=== PATIENT | female | born 1950 | race Caucasian/White ===

== ENCOUNTER 2020-05-15 21:08 | Emergency (ER) | payer MEDICARE, SELFPAY ==
[2020-05-15 21:10] VITALS: BP 155/66; PULSE 90; RESP 18; TEMP 36.7; O2SAT 98; BMI 32.6
--- NOTE | 2020-05-15 21:13 | RAD_ITS ---
STUDY: X-RAY - RIGHT ANKLE REASON FOR EXAM: Female, 69 years old. Twisted ankle while walking dog this evening. TECHNIQUE: 3 view(s) of the ankle. COMPARISON: Left tibia and fibula dated 07/23/2015 FINDINGS: Normal visualized distal fibula. There is a radiolucency projecting over the talar dome and distal tibia on the oblique image. There are degenerative changes of the mid and hindfoot. There is a bony density projecting anterior to the tibia which may reflect an underlying osteophyte. There is diffuse soft tissue swelling. RAD/Ankle min 3 Views IMPRESSION: Indeterminate radiolucency projecting over the talar dome and distal tibia, cannot exclude an underlying fracture. Rounded bony density projecting anterior to the ankle joint, may reflect an underlying osteophyte. Electronically Signed: Araceli Nelson MD at 21:35 EDT Tel , Service support ,
--- NOTE | 2020-05-15 23:15 | CT_ITS ---
HISTORY: CONCERN FOR FX ON XRAY, TWISTED ANKLE WHILE WALKING DOG EXAMINATION: CT Ankle W/O Contrast Injection TECHNIQUE: Helically acquired images were obtained of the right ankle. 2-D reformats were performed by the technologist. A radiation dose optimization technique was used for this scan. IV Contrast dosage and agent: None COMPARISON: Right ankle x-ray 2019 FINDINGS: Posterior and medial tibiotalar joint circumscribed loose body measuring 0.8 cm in maximal dimension and this is potentially related to prior posterior malleolar chip fracture of the distal tibia. No dislocation or acute fracture. Osteoarthritis with narrowing of the tibiotalar joint accompanied by anterior spurring of the distal tibia.. Small to moderate effusion of the tibiotalar joint, more pronounced anteriorly, and where there are 2 principal dystrophic calcifications as seen with synovial osteochondromatosis. The 2 [id number] calcifications measure approximately 1.5 cm and 0.9 cm in maximal dimension, respectively. The osteochondromas are compatible with secondary change related to osteoarthritis. Intact talar dome. The ankle mortise is not widened and no findings of tibiotalar instability. Small posterior calcaneal spur at the Achilles insertion. The plantar arch is maintained. The subtalar joint is maintained. Nonspecific and generalized superficial soft tissue swelling, more so laterally. CT/Extremity Lower without Contra IMPRESSION: 1. No dislocation, acute fracture, or findings of instability. 2. 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 Details above. 3. Nonspecific diffuse soft tissue swelling, more so laterally. Individualized dose optimization techniques were used for this CT. at 0103 Reported and signed by: Zach Sanotro MD Electronically Signed: Zach Santoro, at 1:02 EDT Tel , Service support ,
--- NOTE | 2020-05-15 23:17 | ED.VIS.GEN ---
History of Present Illness Chief Complaint: Lower Extremity Injury Informant: Patient Onset: Today Current Severity: Moderate Maximum Severity: Moderate Narrative: Patient presents with right ankle injury. She was walking her dog in her backyard when the dog pulled her 1 direction. She did not fall but did twist her ankle. She denies any other injuries. She has not taken anything for pain yet. - Past Medical History (1) Atrial flutter Status: Chronic (2) Hypertension Status: Chronic (3) High cholesterol Status: Chronic (4) COPD (chronic obstructive pulmonary disease) Status: Chronic (5) Diabetes Status: Chronic (6) DVT (deep venous thrombosis) Status: Chronic Past Medical History - Allergies and Home Meds Allergies/Adverse Reactions: Allergies codeine Allergy (Verified 05/15/20 21:12) Unknown exenatide [From Byetta] Allergy (Verified 05/15/20 21:12) Itching meloxicam [From Mobic] Allergy (Verified 05/15/20 21:12) Itching Primary Care Physician: Carey Elise MD [Primary Care Provider] - Prior records reviewed: Yes Lives: With Family Smoking Status: Current every day smoker Review of Systems General: Denies: Chills, Fever Eyes: Denies: Visual changes - bilaterally ENT: Denies: Bilateral ear pain Cardiovascular: Denies: Chest pain Respiratory: Denies: Dyspnea, Cough Gastrointestinal: Denies: Abdominal pain Musculoskeletal: Reports: Extremity Pain Neurological: Denies: Headache Hematologic: Denies: Easy bruising, Easy bleeding Allergy: Denies: Uticaria Physical Exam Vital Signs/Narrative: Vital Signs Temp Pulse Resp BP Pulse Ox 05/15/20 21:10 98.0 F 90 18 155/66 H 98 Inital Vital Signs reviewed: Yes General: Well nourished, Well developed Head: Normocephalic ENT: Moist mucous membranes Neck: Supple Cardiovascular: Regular rate, Regular rhythm Respiratory: No distress, CTA bilaterally Abdomen: Soft Extremities: - - Diffuse tenderness of the right ankle, bilateral malleoli and anteriorly. No tenderness over the midfoot or toes. Strong pulses. No tenderness of the proximal fibula or knee. Neurological: Alert, Oriented x3 Psychological: Normal affect Diagnostic/Tx/Re-eval Impressions Ankle X-Ray 05/15/20 21:13 IMPRESSION: Indeterminate radiolucency projecting over the talar dome and distal tibia, cannot exclude an underlying fracture. Rounded bony density projecting anterior to the ankle joint, may reflect an underlying osteophyte. Electronically Signed: Araceli Nelson MD at 21:35 EDT Tel , Service support , Lower Extremity CT 05/15/20 23:15 IMPRESSION: 1. No dislocation, acute fracture, or findings of instability. 2. 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 Details above. 3. Nonspecific diffuse soft tissue swelling, more so laterally. Individualized dose optimization techniques were used for this CT. at 0103 Reported and signed by: Zach Santoro MD Electronically Signed: Zach Santoro, at 1:02 EDT Tel , Service support , 05/15/20 21:13 Ankle min 3 Views [RAD] Stat 05/15/20 23:15 CT Lower [Extremity Lower without Contra] [CT] Stat - Medical Decision Making Patient was given Tylenol here for pain. Because the initial x-ray revealed possible talar fracture, CT was obtained. There is no evidence of fracture on CT. Patient is placed in a stirrup boot. She will continue Tylenol or ibuprofen at home for pain. She has a walker that she is able to use at home to place minimal pressure on her right foot. She is to follow with her family doctor in the next 5 to 7 days. ED Disposition - Plan for ED Patient: Disposition: Home or Assisted Living Diagnosis: Right ankle sprain Instructions: ED Sprain Ankle W X Ray Referrals: Carey Elise MD [Primary Care Provider] - 5-7 Days
[2020-05-16] MEDS: Acetaminophen 500 MG Tablet 1000 MG PO
[2020-05-16 01:45] VITALS: BP 143/65; PULSE 73; RESP 16; O2SAT 95
== END 2020-05-16 01:46 | disposition home or self-care (01) ==
PROVIDERS: Emergency Provider Emergency Medicine; PCP Internal Medicine
DX: S93.401A Sprain of unspecified ligament of right ankle, initial encounter (principal); F17.200 Nicotine dependence, unspecified, uncomplicated; X50.1XXA Overexertion from prolonged static or awkward postures, initial encounter; Y93.K1 Activity, walking an animal; Z86.718 Personal history of other venous thrombosis and embolism
CPT/HCPCS: 73610; 73700; 99283

== ENCOUNTER 2021-05-22 17:19 | Emergency (ER) | payer MEDICARE, SELFPAY ==
[2021-05-22 17:21] VITALS: BP 139/70; PULSE 92; RESP 16; TEMP 36.9; O2SAT 95; BMI 29.2
--- NOTE | 2021-05-22 19:18 | EX.ED.DYSGE1 ---
HPI History of Present Illness Chief Complaint: Dental Detail of Chief Complaint: White spots in mouth Informant: patient Onset/Context/Timing Onset: Today Narrative Narrative: Patient presents due to white spots in her mouth and on her tongue. She states yesterday she developed sore throat but woke up this morning with white spots in her mouth. She denies pain. She is a diabetic and does admit her blood sugars have been elevated. She also states that she does use an inhaler for her COPD. She does not rinse her mouth out after using her inhaler. [facility] Medical History (Updated 05/22/21 @ 19:[address] Alissa Torres MD) Atrial flutter COPD (chronic obstructive pulmonary disease) Diabetes DVT (deep venous thrombosis) High cholesterol Hypertension Home Medications albuterol sulfate [Proair Hfa (SP)Vent Pts] 1 puff INHALATION Q4H PRN PRN 11/29/16 [History Last Taken 11/29/16] amlodipine 10 mg PO DAILY 11/29/16 [History Last Taken 11/29/16] atorvastatin 40 mg PO QHS 11/29/16 [History Last Taken 11/28/16] ciclopirox [Loprox] 1 applic TP DAILY 11/29/16 [History Last Taken Unknown] dulaglutide [Trulicity] 0.75 mg SQ QWEEK 11/29/16 [History Last Taken 11/22/16] gabapentin [Neurontin] 300 mg PO BID 11/29/16 [History Last Taken 11/29/16] glimepiride 4 mg PO DAILY 11/29/16 [History Last Taken 11/29/16] loratadine [Alavert] 10 mg PO DAILY 11/29/16 [History Last Taken 11/29/16] metformin 500 mg PO DAILY 11/29/16 [History Last Taken 11/29/16] metoprolol succinate [Toprol Xl] 25 mg PO DAILY 11/29/16 [History Last Taken 11/29/16] pantoprazole 20 mg PO DAILY 11/29/16 [History Last Taken 11/29/16] rivaroxaban [Xarelto] 20 mg PO DAILY 11/29/16 [History Last Taken 11/29/16] nystatin 500,000 unit PO Q6H 14 Days #280 ml 05/22/21 [Rx Last Taken Unknown] Allergy/AdvReac Type Severity Reaction Status Date / Time codeine Allergy Unknown Verified 05/22/21 17:22 exenatide [From Byetta] Allergy Itching Verified 05/22/21 17:22 meloxicam [From Mobic] Allergy Itching Verified 05/22/21 17:22 Social History Smoking Status: Current every day smoker tobacco type: cigarettes ROS ROS ED Constitutional Constitutional ED: Denies chills or fever(s) Eyes Eyes: Denies change in vision ENT ENT ED: Reports sore throat and other Details: White spots in mouth Cardiovascular Cardiovascular: Denies chest pain Respiratory/Chest Respiratory/Chest: Denies cough or dyspnea Gastrointestinal Gastrointestinal: Denies abdominal pain, diarrhea, nausea or vomiting Genitourinary Genitourinary ED: Denies dysuria Musculoskeletal Musculoskeletal: Denies back pain Integumentary Denies rash Neurologic Neurologic: Denies headache(s) Allergic/Immunologic Allergic/Immunologic ED: Denies urticaria EXAM Physical Exam Const Vital Signs: 05/22/21 17:21 Temperature 98.4 F Temperature Source Temporal Pulse Rate 92 Respiratory Rate 16 Blood Pressure 139/70 H Blood Pressure Mean 93 Pulse Ox 95 Oxygen Delivery Method Room Air Positive well nourished and well developed General Appearance ED: well developed HEENT HEENT Narrative: Patient has evidence of thrush on her tongue and on the buccal mucosa bilaterally. Neck supple Chest Wall inspection of chest normal and palpation of chest normal Resp normal respiratory effort and clear to auscultation bilaterally Cardio regular rate and regular rhythm GI normal to inspection, nondistended, normoactive bowel sounds Neuro oriented x3 Sensorium / Orientation: alert Psych mental status grossly normal MDM MDM MDM Narrative Medical decision making narrative: Nystatin swish and swallow will be provided. First dose given here. Discharge Plan Triage Chief Complaint: Dental ED Provider: Alissa Torres Dx/Rx/DC Orders Clinical Impression: Oral thrush Instructions: Rekha Infection: Thrush Prescriptions: New nystatin 100,000 unit/mL suspension 500,000 unit PO Q6H 14 Days Qty: 280 RF: 0 No Action atorvastatin 40 MG tablet 40 mg PO QHS RF: 0 loratadine [Alavert] 10 MG tablet,disintegrating 10 mg PO DAILY RF: 0 pantoprazole 20 MG tablet 20 mg PO DAILY RF: 0 amlodipine 10 MG tablet 10 mg PO DAILY RF: 0 glimepiride 4 MG tablet 4 mg PO DAILY RF: 0 gabapentin [Neurontin] 300 MG capsule 300 mg PO BID RF: 0 metoprolol succinate [Toprol XL] 25 MG tablet extended release 24 hr 25 mg PO DAILY RF: 0 albuterol sulfate [ProAir HFA] 1 PUFF inhaler 1 puff inhalation Q4H PRN PRN (Reason: Asthma) RF: 0 ciclopirox [Loprox (as olamine)] 90 GM cream 1 applic TP DAILY RF: 0 metformin 500 MG tablet,ER nelda.retention 24 hr 500 mg PO DAILY RF: 0 rivaroxaban [Xarelto] 20 MG tablet 20 mg PO DAILY RF: 0 dulaglutide [Trulicity] 0.75 MG/0.5 ML pen injector 0.75 mg SQ QWEEK RF: 0 Primary Care Provider: Carey Elise Referrals: Carey Elise MD [Primary Care Provider] - 1-2 Weeks Disposition Disposition: Home, Self Care
[2021-05-22] MEDS: NYSTATIN 500,000 UNIT/5 ML UDC 500000 UNIT PO (19:46)
== END 2021-05-22 19:47 | disposition home or self-care (01) ==
PROVIDERS: Emergency Provider Emergency Medicine; PCP Internal Medicine
DX: B37.0 Candidal stomatitis (principal); J44.9 Chronic obstructive pulmonary disease, unspecified; E11.9 Type 2 diabetes mellitus without complications; E78.00 Pure hypercholesterolemia, unspecified; I10 Essential (primary) hypertension; F17.210 Nicotine dependence, cigarettes, uncomplicated; Z79.51 Long term (current) use of inhaled steroids; Z79.84 Long term (current) use of oral hypoglycemic drugs; Z79.899 Other long term (current) drug therapy
CPT/HCPCS: 99283

== ENCOUNTER 2025-06-21 12:23 | Emergency (ER) | payer MEDICARE, SELFPAY ==
[2025-06-21 12:24] VITALS: BP 99/75; PULSE 72; RESP 18; TEMP 36.7; O2SAT 97; BMI 29.3
[2025-06-21 12:27] VITALS: BP 99/75; PULSE 72; RESP 18; TEMP 36.7; O2SAT 97
--- NOTE | 2025-06-21 12:48 | CT_ITS ---
PROCEDURE: ABDOMEN/PELVIS WITHOUT CONT 06/21/2025 REASON FOR EXAM: LEFT FLANK PAIN TECHNIQUE: Procedure Code: [id number] Modality: CT Procedure: ABDOMEN/PELVIS WITHOUT CONT Noncontrast technique limits evaluation of the abdominal and pelvic viscera. Coronal and Sagittal reconstruction series were provided. One or more dose reduction techniques were used (e.g., Automated exposure control, adjustment of the mA and/or kV according to patient size, use of iterative reconstruction technique). RADIATION DOSE SUMMARY: CTDlvol: 16.4 mGy DLP: 790.77 mGycm COMPARISON: None FINDINGS: Lung bases: Increased linear markings in the posterior aspect of the right middle lobe suggestive of linear scarring and/or atelectasis. Coronary artery calcification. Liver: Normal size. No obvious mass. Gallbladder: Surgically absent. Spleen: Normal size. Pancreas: Diffuse fatty atrophy. Adrenals: Unremarkable Kidneys: No urolithiasis. No hydronephrosis. Bladder: Only partially filled. Reproductive Organs: Prior hysterectomy. Adnexal regions are unremarkable. Bowel: Colonic diverticulosis without diverticulitis. Appendix: The appendix is not identified. There is no inflammatory process identified in the right lower quadrant to suggest appendicitis. Lymph nodes: Unremarkable. Vasculature: Mild diffuse atherosclerotic calcifications are noted. Peritoneum / Retroperitoneum: Unremarkable Bones: Degenerative changes of the spine. CT/Abdomen/Pelvis without Cont IMPRESSION: Sigmoid diverticulosis. Status post cholecystectomy. No ureteral obstruction is seen. Reading Location: [id number]
--- NOTE | 2025-06-21 12:48 | ED.VIS.GI ---
HPI HPI - GI History of Present Illness Chief Complaint: Flank Pain Informant: patient Narrative Narrative: 74-year-old female states she started having pain in her left flank this morning. Has been there for several hours. No nausea or vomiting. No problems urinating. Normal bowel movements no blood in there or her urine. No fevers or chills that she knows of. No recent fall or injury. Hurts more to move around. Seen in urgent care and directed here to the ER. [facility] Medical History DVT (deep venous thrombosis) Diabetes COPD (chronic obstructive pulmonary disease) High cholesterol Hypertension Atrial flutter Home Medications ?Medication ?Instructions ?Recorded ?Last Taken ?Type albuterol sulfate 90 mcg/actuation 1 puff inhalation Q4H PRN PRN 11/29/16 11/29/16 History aerosol inhaler (ProAir HFA) Asthma amlodipine 10 mg tablet 10 mg PO DAILY 11/29/16 11/29/16 History atorvastatin 40 mg tablet 40 mg PO QHS 11/29/16 11/28/16 History ciclopirox 0.77 % topical cream 1 applic TP DAILY 11/29/16 Unknown History (Loprox (as olamine)) dulaglutide 0.75 mg/0.5 mL 0.75 mg SQ QWEEK 11/29/16 11/22/16 History subcutaneous pen injector (Trulicity) gabapentin 300 mg capsule 300 mg PO BID 11/29/16 11/29/16 History (Neurontin) glimepiride 4 mg tablet 4 mg PO DAILY 11/29/16 11/29/16 History loratadine 10 mg disintegrating 10 mg PO DAILY 11/29/16 11/29/16 History tablet (Alavert) metformin 500 mg 24 hr 500 mg PO DAILY 11/29/16 11/29/16 History tablet,extended release (gastric retention) metoprolol succinate 25 mg 25 mg PO DAILY 11/29/16 11/29/16 History tablet,extended release 24 hr (Toprol XL) pantoprazole 20 mg tablet,delayed 20 mg PO DAILY 11/29/16 11/29/16 History release rivaroxaban 20 mg tablet (Xarelto) 20 mg PO DAILY 11/29/16 11/29/16 History nystatin 100,000 unit/mL oral 500,000 unit (5 mL) PO Q6H 14 days 05/22/21 Unknown Rx suspension #280 mL Allergy/AdvReac Type Severity Reaction Status Date / Time codeine Allergy Unknown Verified 06/21/25 12:24 exenatide (From Byetta) Allergy Itching Verified 06/21/25 12:24 meloxicam (From Mobic) Allergy Itching Verified 06/21/25 12:24 Social History household members: children Smoking Status: Current every day smoker tobacco type: cigarettes ROS ROS ED Constitutional Constitutional ED: Denies chills or fever(s) Eyes Eyes: Denies change in vision or diplopia ENT ENT ED: Denies rhinorrhea or sore throat Cardiovascular Cardiovascular: Denies chest pain or palpitations Respiratory/Chest Respiratory/Chest: Denies cough or dyspnea Gastrointestinal Gastrointestinal: Reports abdominal pain; Denies diarrhea, nausea or vomiting Genitourinary Genitourinary ED: Reports flank pain; Denies dysuria or hematuria Musculoskeletal Musculoskeletal: Reports back pain; Denies neck pain Integumentary Denies abscess or rash Neurologic Neurologic: Denies headache(s), paresthesias or weakness Psychiatric Psychiatric: Denies anxiety or suicidal thoughts EXAM Physical Exam Const Vital Signs: 06/21/25 12:24 06/21/25 12:27 Temperature 98.1 F 98.1 F Temperature Source Oral Oral Pulse Rate 72 72 Respiratory Rate 18 18 Blood Pressure 99/75 99/75 Blood Pressure Mean 83 83 Pulse Ox 97 97 Oxygen Delivery Method Room Air Room Air Positive well nourished, well developed and obese General Appearance ED: well developed and NAD Nutritional Appearance: obese HEENT Reports moist mucous membranes normocephalic and atraumatic Eyes PERRL and EOMs intact bilaterally Neck full ROM and supple Resp normal respiratory effort and clear to auscultation bilaterally Cardio regular rate, regular rhythm and no murmurs GI non-distended GI Narrative: Mild tenderness in the lateral aspect of the left lower quadrant, but most of the tenderness seems to be bony at the ASIS and the pelvic brim that follows around toward the posterior aspect of her flank. She states this reproduces her pain and it hurts more for her to move suggesting a possible musculoskeletal etiology. No CVA tenderness. No rebound or guarding. No pulsatile mass. Obesity limiting this exam. Auscultation: normoactive bowel sounds Palpation: soft Back/Spine no CVA tenderness General Back: other FROM Extremity normal to inspection General Extremety ED: Negative for edema, pulses abnormal or tenderness General Extremity: Negative for edema or pulses abnormal Neuro oriented x3, CN's II-XII intact bilaterally and no sensory deficits noted Sensorium / Orientation: awake and alert Motor Exam: strength 5/5 throughout Skin no rashes or lesions noted and no wounds MDM MDM MDM Narrative Medical decision making narrative: Differential includes fracture or bursitis or other musculoskeletal etiologies of pain in this area but also ureterolithiasis, pyelonephritis, diverticulitis, early zoster although I do not see any indication of rash at this time. Offered analgesics while we did a workup including a CT but she declined. I reviewed the CT images and report which I agree with, it is showing diverticulosis but no evidence of diverticulitis or any other acute abnormality. Her blood work is unremarkable, she does not have a leukocytosis or leftward shift, and her urinalysis is unremarkable as well. Given all of this, this rules out intra-abdominal and GI causes of her pain as well as renal/ureteral/infectious causes, so I think this is probably musculoskeletal and she is thinking that now as well. Supportive care advised, she has a history of stage II chronic kidney disease so I would avoid NSAIDs which she plans on doing and just taking Tylenol as needed. She was offered but declined. Lab Data Attestation: I reviewed the patient's lab results. Labs: Laboratory Results - last 24 hr 06/21/25 06/21/25 13:11 13:15 WBC 10.2 RBC 5.35 Hgb 14.6 Hct 45.0 MCV 84.1 MCH 27.3 MCHC 32.4 RDW Std Deviation 47.7 H RDW Coeff of Eduarda 15.7 H Plt Count 355 MPV 10.6 Immature Gran % (Auto) 0.400 Neut % (Auto) 60.0 Lymph % (Auto) 26.2 Woods % (Auto) 7.8 Eos % (Auto) 4.7 Baso % (Auto) 0.9 Absolute Neuts (auto) 6.1 Absolute Lymphs (auto) 2.67 Nucleated RBC % 0 Sodium 135 Potassium 4.8 Chloride 102 Carbon Dioxide 22.5 Anion Gap 11 BUN 22 H Creatinine 1.06 Estim Creat Clear Calc 52.29 Est GFR (MDRD) Non-Af 54 L BUN/Creatinine Ratio 20.8 H Glucose 198 H Calcium 9.4 Urine Color Yellow Urine Clarity Clear Urine pH 6.0 Ur Specific [place] 1.010 Urine Protein 30 H Urine Glucose (UA) 1000 H Urine Ketones Negative Urine Occult Blood Negative Urine Nitrite Negative Urine Bilirubin Negative Urine Urobilinogen Normal Ur Leukocyte Esterase 25 H Urine RBC 0 SEEN Urine WBC 0-5 SEEN Ur Squamous Epith Cells 0 SEEN Urine Bacteria 0 SEEN Urine Mucus 0 SEEN Urine Yeast RARE Radiography Diagnostic Testing: Clinical Impression(s) from Imaging Studies Abdomen/Pelvis CT 06/21/25 12:48 IMPRESSION: Sigmoid diverticulosis. Status post cholecystectomy. No ureteral obstruction is seen. Reading Location: [id number] Discharge Plan Triage Chief Complaint: Flank Pain ED Provider: Maged Silverman Dx/Rx/DC Orders Clinical Impression: Strain of flank Instructions: ED Muscle Strain, Abdomen Prescriptions: No Action atorvastatin 40 MG tablet 40 mg PO QHS loratadine [Alavert] 10 MG tablet,disintegrating 10 mg PO DAILY pantoprazole 20 MG tablet 20 mg PO DAILY amlodipine 10 MG tablet 10 mg PO DAILY glimepiride 4 MG tablet 4 mg PO DAILY gabapentin [Neurontin] 300 MG capsule 300 mg PO BID metoprolol succinate [Toprol XL] 25 MG tablet extended release 24 hr 25 mg PO DAILY albuterol sulfate [ProAir HFA] 1 PUFF inhaler 1 puff inhalation Q4H PRN PRN (Reason: Asthma) ciclopirox [Loprox (as olamine)] 90 GM cream 1 applic TP DAILY metformin 500 MG tablet,ER nelda.retention 24 hr 500 mg PO DAILY rivaroxaban [Xarelto] 20 MG tablet 20 mg PO DAILY dulaglutide [Trulicity] 0.75 MG/0.5 ML pen injector 0.75 mg SQ QWEEK nystatin 100,000 unit/mL suspension 500,000 unit PO Q6H 14 Days Qty: 280 0RF Rx Instructions: administer 1/2 of dose in each side of the mouth Primary Care Provider: Carey Elise Referrals: Carey Elise MD [Primary Care Provider] - 10-14 Days if not better Print Language: Grenadian Disposition Disposition: Home, Self Care
[2025-06-21 13:21] LABS: Mucous, Urine 0 SEEN /hpf (<or=2+); Red Blood Cells-Urine 0 SEEN /hpf (0-5); Squamous Epithelial Cells - UA 0 SEEN /hpf (5-10)
[2025-06-21 13:23] LABS: Hematocrit 45.0 % (37-47); Hemoglobin 14.6 g/dL (12.0-15.0); Immature Granulocytes Count 0.040 X10^3/uL (0.0-0.0); Mean Corp Hgb Conc 32.4 g/dL (32-36); Mean Corpuscular Volume 84.1 fL (81-99); Mean Platelet Vol. 10.6 fl (6.2-12.0); NRBC Flagged by Analyzer 0 % (0-5); Platelet Count 355 K/mm3 (150-450); RBC Distribution Width CV 15.7 % (11.6-14.6); RBC Distribution Width SD 47.7 fl (35.1-43.9); Red Blood Count 5.35 M/mm3 (4.2-5.4); White Blood Count 10.2 K/mm3 (4.4-11.0)
[2025-06-21 13:26] LABS: Color, Urine Yellow (Yellow); Glucose, Dipstick 1000 mg/dl (Normal); Ketone-Dipstick Negative (Negative); Leukocyte Esterase-Dipstick 25 /ul (Negative); Nitrite-Dipstick Negative (Negative); Occult Blood-Urine Negative /ul (Negative); Protein-Dipstick 30 mg/dl (Negative); Specific Gravity, Urine 1.010 (1.002-1.030); Urine Bilirubin Dipstick Negative (Negative)
[2025-06-21 13:44] LABS: Yeast-Urine RARE /hpf (None Seen)
[2025-06-21 13:53] LABS: Anion Gap 11 (5-15); BUN 22 mg/dL (4-19); BUN/Creat Ratio 20.8 RATIO (10-20); Calcium,Total 9.4 mg/dL (7.6-11.0); Carbon Dioxide 22.5 mmol/L (21.0-32.0); Chloride 102 mmol/L (98-108); Estimated Creatinine Clearance 52.29 ml/min (50-250); Glucose 198 mg/dL (70-99); Potassium 4.8 mmol/L (3.3-5.1)
[2025-06-21 15:01] VITALS: BP 107/71; PULSE 79; RESP 15; TEMP 36.6; O2SAT 100
== END 2025-06-21 15:02 | disposition home or self-care (01) ==
PROVIDERS: Emergency Provider Emergency Medicine; PCP Internal Medicine; Visit Provider Emergency Medicine
DX: S39.011A Strain of muscle, fascia and tendon of abdomen, initial encounter (principal); J44.9 Chronic obstructive pulmonary disease, unspecified; E11.22 Type 2 diabetes mellitus with diabetic chronic kidney disease; I12.9 Hypertensive chronic kidney disease with stage 1 through stage 4 chronic kidney disease, or unspecified chronic kidney disease; E78.00 Pure hypercholesterolemia, unspecified; N18.2 Chronic kidney disease, stage 2 (mild); F17.210 Nicotine dependence, cigarettes, uncomplicated; E66.9 Obesity, unspecified; X58.XXXA Exposure to other specified factors, initial encounter
CPT/HCPCS: 74176; 80048; 81001; 85025; 99283; A4216